=== PATIENT | male | born 1980 | race Two or more races ===

== ENCOUNTER 2016-05-02 15:41 | Emergency (ER) | payer MEDICAID ==
[~2016-05-02] VITALS: Ht 165.1 cm; Wt 100.0 kg
[2016-05-02 16:15] VITALS: BP 130/69
== END 2016-05-02 18:36 | disposition home or self-care (01) ==
LOC: ER 18:32
DX: Z48.02 Encounter for removal of sutures (principal); L03.90 Cellulitis, unspecified; F12.10 Cannabis abuse, uncomplicated; F17.210 Nicotine dependence, cigarettes, uncomplicated
CPT/HCPCS: 99281